=== PATIENT | male | born 1940 | race Caucasian/White ===

== ENCOUNTER 2018-10-16 11:00 | Outpatient (CLI) | payer MEDICARE ==
--- NOTE | 2018-10-16 15:44 | MRI ---
MRI ABDOMEN WITHOUT CONTRAST: Date: 10/16/18 HISTORY: R94.5 liver function test abnormal. Abnormal CT 09/25/18. 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 This is not significantly changed. The intrahepatic and extrahepatic biliary dilatation has resolved. There is extensive cholelithiasis with complete filling of the gallbladder with stones. There is likely a small stone in the distal com mon bile duct on the previous examination which was not radiopaque. Numerous cysts throughout the yas er versus biliary hamartoma is difficult to evaluate without intravenous contrast. There is no dilatation of the pancreatic duct. There is serpiginous T2 signal within the pancreatic h ead, which appears to communicate with the minor pancreatic duct. These may be dilated peripheral clyde tules versus multiple IPMN. No intraperitoneal adenopathy. Multiple renal cysts. There are extensive scoliotic changes of the lumbar spine, S-shaped thoracolumbar scoliosis, with mul tifocal neural foraminal and spinal canal narrowing. IMPRESSION: 1. Interval resolution of intrahepatic biliary dilatation and extrahepatic biliary dilatation, likel y due to a past common bile duct stone. The extrahepatic biliary dilatation seen on the prior examina tion has resolved. 2. Serpiginous T2 hyperintense foci throughout the pancreatic uncinate process and head, likely dila adithya duct due to drainage through the accessory duct, a normal variant of pancreatic ductal fusion, ve rsus multiple branch IPMNs. Given these findings, a follow-up pancreatic protocol CT, or preferably M RI, in 1 year is recommended. 3. 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 This is difficult to evaluate without intravenous contr ast. 4. Extensive small cholelithiasis. No evidence for acute cholecystitis. POS: [facility]
== END 2018-10-16 11:01 | disposition home or self-care (01) ==
LOC: MRI 11:00
PROVIDERS: ATTEND Internal Medicine Gastroenterology
DX: R93.5 Abnormal findings on diagnostic imaging of other abdominal regions, including retroperitoneum (principal); R94.5 Abnormal results of liver function studies; K83.8 Other specified diseases of biliary tract; K80.20 Calculus of gallbladder without cholecystitis without obstruction
CPT/HCPCS: 74181

== ENCOUNTER 2018-11-17 06:43 | Outpatient (CLI) | payer MEDICARE ==
[2018-11-17 13:13] LABS: #Basophils 0.1 thou/uL (0.0-0.2); #Eosinphils 0.1 thou/uL (0.0-0.7); #Lymphocytes 2.2 thou/uL (1.20-3.40); #Monocytes 0.5 thou/uL (0.11-0.59); #Neutrophils 6.1 thou/uL (1.40-6.50); %Eosinophils 0.8 % (0.0-10.0); %Lymphocytes 24.5 % (21.0-51.0); %Neutrophils 68.7 % (42.0-75.0); Hemoglobin 15.9 g/dL (14.0-18.0); Mean Corpuscular Hemoglobin 31.5 pg (27.0-31.0); Mean Corpuscular Volume 95.4 fL (78.0-98.0); Mean Platelet Volume 9.3 fL (7.4-10.4); Platelet Count 252 thou/uL (130-400); RBC Distribution Width 13.1 % (11.5-14.5); Red Blood Cell (RBC) Count 5.06 mill/uL (4.70-6.10); White Blood Cell (WBC) Count 8.9 thou/uL (4.8-10.8)
[2018-11-17 13:22] LABS: ALT (SGPT) 185 U/L (8-55); AST (SGOT) 62 U/L (5-34); Albumin 4.3 g/dL (3.4-4.8); Alkaline Phosphatase 241 U/L (40-150); Anion Gap 14 mmol/L (10-20); BUN (Urea Nitrogen) 11 mg/dL (8.4-25.7); Bilirubin, Direct 0.6 mg/dL (0.1-0.3); Bilirubin, Total 1.3 mg/dL (0.2-1.2); Calc. Creatinine Clearance 0 mL/min (70-130); Calcium 10.1 mg/dL (7.8-10.44); Carbon Dioxide 31 mmol/L (23-31); Chloride 99 mmol/L (98-107); Estimated GFR-MDRD 60; Glucose 164 mg/dL (83-110); Potassium 3.6 mmol/L (3.5-5.1); Protein, Total 7.2 g/dL (5.8-8.1); Sodium 140 mmol/L (136-145)
== END 2018-11-17 06:44 | disposition home or self-care (01) ==
LOC: LABBT 06:43
PROVIDERS: ATTEND Surgery
DX: Z01.818 Encounter for other preprocedural examination (principal); K80.80 Other cholelithiasis without obstruction
CPT/HCPCS: 80048; 80076; 85025; 93005; 93010

== ENCOUNTER 2018-11-24 09:26 | Day surgery (SDC) | payer MEDICARE ==
[2018-11-17 11:31] VITALS: BMI 24.7
[2018-11-24] MEDS ORDERED: cefOXitin Sodium/Dextrose,Iso 2 GM in Premix Bag 1 BAG IVPB SCH (11:00)
[2018-11-24] MEDS ORDERED: Bupivacaine HCl 0.5%/Epinephrine 1:200,000/PF 30 ml Vial ONE (11:35)
[2018-11-24] MEDS ORDERED: Iothalamate Meglumine 60% 50 ML VIAL FS ONE (11:35)
[2018-11-24] MEDS ORDERED: Fentanyl 100 MCG/2 ML VIAL ONE ×2 (12:00)
--- NOTE | 2018-11-24 14:59 | RAD ---
XR CHOLANGIOGRAM IN SURGERY: HISTORY: Cholecystectomy. COMPARISON: MRI 10/16/2018. FINDINGS: A total of 2 still images were sent from the operating room. There is normal appearance of the commo n bile duct. A filling defect is not appreciated. IMPRESSION: Fluoroscopy for surgical use. POS: ESPERANZA
--- NOTE | 2018-11-24 15:29 | OP ---
DATE OF PROCEDURE: 11/24/2018 PREOPERATIVE DIAGNOSES: Cholelithiasis and history of choledocholithiasis. POSTOPERATIVE DIAGNOSES: Cholelithiasis and history of choledocholithiasis. PROCEDURE PERFORMED: Laparoscopic cholecystectomy with intraoperative cholangiogram. ANESTHESIA: General. ESTIMATED BLOOD LOSS: Minimal. COMPLICATION: None. SPECIMEN: Gallbladder. FINDINGS: Normal cholangiogram. DESCRIPTION OF PROCEDURE: The patient was taken to the operating room and laid supine on the operating room table. After general anesthetic was obtained, the abdomen was prepped and draped in sterile fashion. A curved incision was made below the umbilicus. Cautery was used to dissect down to and score the fascia. Abdominal cavity was entered bluntly with a Anyi clamp. Holding stitch of PDS was placed on each side of the fascia. Uri trocar was placed. High-flow pneumoperitoneum was obtained. Upper midline 5 mm port and 2 right upper quadrant 5 mm ports were placed under direct visualization. The gallbladder was retracted from gallbladder fossa. There was significant chronic inflammatory change. The critical view of triangle was dissected out and seen showing only the cystic duct and cystic artery branching medial to lateral and no other branching structures. A clip was placed on the duct and a small ductotomy was made just proximal to that. The cholangiocatheter was brought in through a separate incision and a cholangiogram was performed, which shows good contrast flow into the duodenum without obstruction. Cholangiocatheter was removed and the cystic duct was ligated using a PDS Endoloop. Gallbladder was extracted from gallbladder fossa and gallbladder was placed in an EndoCatch bag and brought out through the Uri. There was no bleeding in the liver bed. Right upper quadrant was irrigated until returns were clear. All port sites were infiltrated using local anesthetic. All ports were removed under direct visualization and pneumoperitoneum was let down. PDS was used to close the fascial defect below the umbilicus. All incisions were closed using 4-0 Monocryl and Dermabond. The patient was sent to Recovery in stable condition. All sponge counts, needle counts, and lap counts were correct. Job ID: [id number]
[2018-11-24] MEDS ORDERED: Lidocaine 1% PF 5 ML VIAL ONE (16:41)
[2018-11-24] MEDS ORDERED: ePHEDrine 50 MG/ML VIAL ONE (16:41)
[2018-11-24] MEDS ORDERED: Ondansetron PF 4 MG/2 ML Vial ONE (16:41)
[2018-11-24] MEDS ORDERED: PROPOFOL 200 MG/20 ML VIAL ONE (16:41)
[2018-11-24] MEDS ORDERED: Ketorolac Tromethamine 30 MG/ML VIAL ONE (16:41)
[2018-11-24] MEDS ORDERED: Rocuronium Bromide 10 MG/ML (10ML VIAL) ONE (16:41)
[2018-11-24] MEDS ORDERED: Glycopyrrolate 0.2 MG/ML 5 ML SYRINGE ONE (16:41)
== END 2018-11-24 20:10 | disposition home or self-care (01) ==
LOC: SDC 09:26
PROVIDERS: ATTEND Surgery
PROC: 0FT44ZZ Resection of Gallbladder, Percutaneous Endoscopic Approach (ICD-10-PCS; principal; 2018-11-24)
PROC: BF10YZZ Fluoroscopy of Bile Ducts using Other Contrast (ICD-10-PCS; 2018-11-24)
DX: K80.10 Calculus of gallbladder with chronic cholecystitis without obstruction (principal); E11.9 Type 2 diabetes mellitus without complications; F17.210 Nicotine dependence, cigarettes, uncomplicated; Z88.0 Allergy status to penicillin; Z88.1 Allergy status to other antibiotic agents; Z88.6 Allergy status to analgesic agent; Z79.899 Other long term (current) drug therapy
CPT/HCPCS: 47532; 51798; 88304; J0670; J1885; J2001; J2405; J2704; J3010; J3490; Q9961

== ENCOUNTER 2025-08-11 16:16 | Emergency (ER) | payer OTHER ==
[~2025-08-11 16:16] MED LIST: Iopamidol-370 76% 500 ML MDV (1 ML CHARGE) ONE
[2025-08-11 17:33] LABS: #Basophils 0.05 10x3/uL (0.0-0.2); #Eosinophils 0.23 10x3/uL (0.0-0.7); #Monocytes 0.54 10x3/uL (0.11-0.59); #Neutrophils 3.98 10x3/uL (1.40-6.50); %Basophils 0.7 % (0.0-1.0); %Eosinophils 3.3 % (0.0-10.0); %Lymphocytes 30.4 % (21.0-51.0); %Monocytes 7.8 % (0.0-10.0); %Neutrophils 57.5 % (42.0-75.0); Hematocrit 41.4 % (42.0-52.0); Hemoglobin 13.3 g/dL (14.0-18.0); Mean Corpuscular Hemoglobin 31.0 pg (27.0-31.0); Mean Corpuscular Volume 96.5 fL (78.0-98.0); Platelet Count 214 10x3/uL (130-400); Red Blood Cell (RBC) Count 4.29 mill/uL (4.70-6.10); White Blood Cell (WBC) Count 6.93 10x3/uL (4.8-10.8)
[2025-08-11 17:47] LABS: INR-International Normal Ratio 1.1; Prothrombin Time 14.2 sec (12.0-14.7)
[2025-08-11 17:48] LABS: PTT 32.7 sec (22.9-36.1)
[2025-08-11 17:50] LABS: ALT (SGPT) 8 U/L (Less than 45); AST (SGOT) 12 U/L (11-34); Albumin 3.4 g/dL (3.1-4.5); Alkaline Phosphatase 73 U/L (40-110); Anion Gap 13 mmol/L (10-20); BUN (Urea Nitrogen) 18 mg/dL (8.4-25.7); Bilirubin, Total 0.4 mg/dL (0.3-1.2); Calc. Creatinine Clearance 0 mL/min (70-130); Calcium 9.2 mg/dL (7.8-10.44); Carbon Dioxide 30 mmol/L (23-31); Chloride 102 mmol/L (98-107); Globulin 3.2 g/dL (2.4-3.5); Glucose 155 mg/dL (83-110); Lipase 56 U/L (8-78); Potassium 3.9 mmol/L (3.5-5.1); Sodium 141 mmol/L (136-145)
[2025-08-11 18:14] LABS: Bacteria/HPF None Seen HPF (None Seen); CAUTI Indications for Culture Acute Hematuria; Glucose, Urine (Dipstick) Greater than 1000 mg/dL (Negative); Leukocyte Negative Leu/uL (Negative); Protein, Urine (Dipstick) Negative (Neg-Trace); RBC/HPF 0-3 HPF (0-3); Specific Gravity, Urine 1.024 (1.002-1.036); WBC/HPF 0-3 HPF (0-3)
[2025-08-11 18:15] LABS: Urine Culture Reflex No No
== END 2025-08-11 19:25 | disposition home or self-care (01) ==
LOC: ERS 16:16
DX: R07.9 Chest pain, unspecified (principal); R79.89 Other specified abnormal findings of blood chemistry; I10 Essential (primary) hypertension; E11.9 Type 2 diabetes mellitus without complications; J44.9 Chronic obstructive pulmonary disease, unspecified; F17.210 Nicotine dependence, cigarettes, uncomplicated
CPT/HCPCS: 75635; 80053; 81001; 83690; 83880; 84484; 85025; 85610; 85730; 93005; Q9967

== ENCOUNTER 2025-10-08 09:25 | Emergency (ER) | payer OTHER ==
[2025-10-08] MEDS ORDERED: Ketorolac Tromethamine 30 MG (1 mL) VIAL ONE (11:16)
== END 2025-10-08 11:12 | disposition home or self-care (01) ==
LOC: ERS 09:25
DX: S39.011A Strain of muscle, fascia and tendon of abdomen, initial encounter (principal); S39.012A Strain of muscle, fascia and tendon of lower back, initial encounter; E11.9 Type 2 diabetes mellitus without complications; I10 Essential (primary) hypertension; J44.9 Chronic obstructive pulmonary disease, unspecified; F17.210 Nicotine dependence, cigarettes, uncomplicated; X50.1XXA Overexertion from prolonged static or awkward postures, initial encounter
CPT/HCPCS: 93005; J1885; 96374